=== PATIENT | female | born 1980 | race African-American/Black ===

== ENCOUNTER 2018-08-29 01:09 | Emergency (ER) | payer OTHER ==
[~2018-08-29] VITALS: Ht 162.6 cm; Wt 101.6 kg
[2018-08-29] MEDS ORDERED: LISINOPRIL2.5 MG (01:35)
[2018-08-29] MEDS ORDERED: NORFLEX100MG PO (08:26)
== END 2018-08-29 08:55 | disposition home or self-care (01) ==
LOC: ER 01:09
DX: M62.838 Other muscle spasm (principal)